=== PATIENT | male | born 1970 | race Caucasian/White ===

== ENCOUNTER 2018-04-23 14:00 | Outpatient (RCR) | payer OTHER, BC, SELFPAY ==
[2018-03-26 13:35] VITALS: BP 144/99; PULSE 83; RESP 16; TEMP 37.3; BMI 31.5
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
[2018-04-02 14:06] VITALS: BP 151/99; PULSE 78; RESP 16; TEMP 37.1; BMI 31.5
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
[2018-04-09 13:20] VITALS: BP 150/94; PULSE 72; RESP 16; TEMP 36.5; BMI 31.5
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
[2018-04-23 14:23] VITALS: BP 159/102; PULSE 76; RESP 20; TEMP 37.2; BMI 31.5
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
== END 2018-04-23 23:59 ==
LOC: WC 14:00
PROVIDERS: Family Provider Family Medicine; PCP Family Medicine; Visit Provider Family Medicine
DX: T25.721A Corrosion of third degree of right foot, initial encounter (principal); T65.891A Toxic effect of other specified substances, accidental (unintentional), initial encounter; Y93.89 Activity, other specified; Y92.89 Other specified places as the place of occurrence of the external cause; Y99.0 Civilian activity done for income or pay; K50.90 Crohn's disease, unspecified, without complications; T25.7 Corrosion of third degree of ankle and foot; G62.89 Other specified polyneuropathies; M79.89 Other specified soft tissue disorders
CPT/HCPCS: 11042; 11045; 87070; 87075; 87077; 87186; 87205; 99204; G0463

== ENCOUNTER 2018-05-21 13:00 | Outpatient (RCR) | payer OTHER, SELFPAY ==
[2018-04-24 00:18] VITALS: BP 159/102; PULSE 76; RESP 20; TEMP 37.2
[2018-04-30 13:41] VITALS: BP 146/91; PULSE 72; RESP 18; TEMP 36.8; BMI 31.5
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
[2018-05-07 14:05] VITALS: BP 150/78; PULSE 76; RESP 18; TEMP 36.9; BMI 31.5
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
[2018-05-21 12:57] VITALS: BP 143/84; PULSE 85; RESP 16; TEMP 37.2; BMI 31.5
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
== END 2018-05-24 23:59 ==
LOC: WC 13:00
PROVIDERS: Family Provider Family Medicine; PCP Family Medicine; Visit Provider Family Medicine
DX: T25.721A Corrosion of third degree of right foot, initial encounter (principal); T65.891A Toxic effect of other specified substances, accidental (unintentional), initial encounter; Y93.89 Activity, other specified; Y92.89 Other specified places as the place of occurrence of the external cause; Y99.0 Civilian activity done for income or pay; K50.90 Crohn's disease, unspecified, without complications; T25.7 Corrosion of third degree of ankle and foot; G62.89 Other specified polyneuropathies; M79.89 Other specified soft tissue disorders
CPT/HCPCS: 11042; 11045

== ENCOUNTER 2018-06-18 12:30 | Outpatient (RCR) | payer OTHER, SELFPAY ==
[2018-05-25 00:26] VITALS: BP 143/84; PULSE 85; RESP 16; TEMP 37.2
[2018-05-28 13:10] VITALS: BP 153/80; PULSE 78; RESP 18; TEMP 37.1; BMI 31.5
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
[2018-06-04 13:24] VITALS: BP 137/101; PULSE 78; RESP 16; TEMP 37.3; BMI 31.5
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
[2018-06-11 14:44] VITALS: BP 151/97; PULSE 77; RESP 20; TEMP 37.5; BMI 31.5
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
[2018-06-18 12:38] VITALS: BP 134/95; PULSE 75; RESP 18; TEMP 37.5; BMI 31.5
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
== END 2018-06-24 23:59 ==
LOC: WC 12:30
PROVIDERS: Family Provider Family Medicine; PCP Family Medicine; Visit Provider Family Medicine
DX: T25.721A Corrosion of third degree of right foot, initial encounter (principal); T65.891A Toxic effect of other specified substances, accidental (unintentional), initial encounter; Y93.89 Activity, other specified; Y92.89 Other specified places as the place of occurrence of the external cause; Y99.0 Civilian activity done for income or pay; K50.90 Crohn's disease, unspecified, without complications; T25.7 Corrosion of third degree of ankle and foot; G62.89 Other specified polyneuropathies; M79.89 Other specified soft tissue disorders; G57.91 Unspecified mononeuropathy of right lower limb; M79.671 Pain in right foot
CPT/HCPCS: 11042; 11045; 87070; 87075; 87205

== ENCOUNTER 2018-07-16 13:30 | Outpatient (RCR) | payer OTHER, SELFPAY ==
[2018-06-25 00:55] VITALS: BP 134/95; PULSE 75; RESP 18; TEMP 37.5
[2018-06-25 14:46] VITALS: BP 153/95; PULSE 74; RESP 18; TEMP 37.5; BMI 31.5
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
[2018-07-02 14:59] VITALS: BP 154/108; PULSE 74; RESP 18; TEMP 37.4; BMI 31.5
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
[2018-07-09 14:32] VITALS: BP 135/93; PULSE 77; RESP 20; TEMP 37.5; BMI 31.5
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
[2018-07-16 13:31] VITALS: BP 160/105; PULSE 85; RESP 18; TEMP 37.3; BMI 31.5
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
== END 2018-07-22 23:59 ==
LOC: WC 13:30
PROVIDERS: Family Provider Family Medicine; PCP Family Medicine; Visit Provider Family Medicine
DX: T25.721A Corrosion of third degree of right foot, initial encounter (principal); T65.891A Toxic effect of other specified substances, accidental (unintentional), initial encounter; Y93.89 Activity, other specified; Y92.89 Other specified places as the place of occurrence of the external cause; Y99.0 Civilian activity done for income or pay; G62.89 Other specified polyneuropathies; M79.89 Other specified soft tissue disorders; M79.671 Pain in right foot; T25.7 Corrosion of third degree of ankle and foot
CPT/HCPCS: 11042; 97597